=== PATIENT | female | born 1975 | race Asian ===

== ENCOUNTER 2019-01-02 09:21 | Day surgery (SDC) | payer BC ==
[2019-01-02] MEDS: Ringers Lactate 1,000 ML IV ONE ×2 (09:54→11:38)
[2019-01-02] MEDS: CEFAZOLIN/SWI 1gm 2 GM/20 ML SYR ONE ×2 (10:13→11:40)
[2019-01-02] MEDS ORDERED: MIDAZOLAM HCL 2 MG/2 ML INJ ONE ×2 (11:31→11:41)
[2019-01-02] MEDS ORDERED: FENTANYL CITR 100 MCG/2 ML ONE (11:39)
[2019-01-02] MEDS ORDERED: PROPOFOL 200 MG/20 ML VIAL IV ONE (11:39)
[2019-01-02] MEDS ORDERED: ONDANSETRON 4 MG/2 ML VIAL ONE (11:41)
[2019-01-02] MEDS ORDERED: LIDOCAINE 2% MPF 5 ML VIAL ONE (11:41)
[2019-01-02] MEDS ORDERED: PROMETHAZINE 25 MG/ML VIAL IV PRN (12:25)
[2019-01-02] MEDS ORDERED: HYDROCODONE/APAP 5/325 MG TAB PO PRN (12:25)
[2019-01-02] MEDS ORDERED: KETOROLAC 30 MG/ML INJ ONE (12:28)
--- NOTE | 2019-01-02 12:30 | P.BOP ---
Preoperative diagnosis: menorrhagia (AUB-O/P) Postoperative diagnosis: same Primary procedure: hysteroscopy endometrial ablation with HTA Estimated blood loss: min Specimen: none Findings: cavity empty, essure coil noted on left only Anesthesia: General Complications: None Transferred to: Recovery Room Condition: Good
--- NOTE | 2019-01-02 22:56 | OP ---
Date of Procedure: 01/02/2019 Surgeon: Abigail Clark MD Preoperative Diagnosis: Menorrhagia. Postoperative Diagnosis: Menorrhagia. Procedures Performed: Hysteroscopy, endometrial ablation with HTA. Anesthesia: General with LMA. Specimens: No specimens. Complications: No complications. Drains: No drains. Condition: Stable. Indication: The patient is a 43-year-old with heavy menstrual bleeding, evaluated. Endometrial samp ling negative. No adnexal masses. Discussed about all the options. She had a polyp removed, and th e cavity was empty. She had prior Essure coils for permanent sterilization. So, we discussed option s of Mirena IUD versus ablation. The patient wanted to proceed with ablation; and so, she was consen julio and brought to the OR; 2 g of Ancef were given. Description Of Procedure: The patient was taken back to the OR, placed in a supine fashion on the op erating table. After general anesthesia was given, she was placed in a dorsal lithotomy position usi liss kraft. Pelvic examination was performed; and uterus was about 6 to 8 weeks size, antefle xed. No adnexal masses. Prep x3 with Betadine was done. Anterior lip was grasped with 2 Allis clam ps and speculum in the posterior wall. Then, using the HTA sheath that was primed, direct hysterosco py was performed through the cervical canal into the uterine cavity. The cavity was empty. Essure c oil from the left tubal ostium was well visualized. On the right, not visualized at all. However, t he cornual end appeared to be occluded. I did not see the opening. So, placed the tip of the scope at the middle of the cavity, attached the anterior Allis to the HTA sheath to stabilize the sheath an d its position. Posterior vagina was packed with 2 Ray-Tecs. Cavity integrity test was done and pas sed without any leak. Then, ablation was started. The heating cycle, 10-minute ablation cycle, and the cooling cycle of 1-1/2 minutes were conducted without any interruption. The scope was then remov ed after the ablation was done, re-placed, irrigated, and pictures were taken. There was excellent a blation effect globally in the entire endometrium. The scope was then removed. Ray-Tecs were remove d. All the instruments were removed. Instrument, needle, and sponge counts were done and were corre ct at the end of the case. The patient tolerated the procedure well. She will follow up with me in 3 weeks. PAULIE Voice ID: [id number] Report ID: [id number]
== END 2019-01-02 13:55 | disposition home or self-care (01) ==
LOC: OR 09:21
PROVIDERS: ATTEND Obstetrics & Gynecology
PROC: 0U5B8ZZ Destruction of Endometrium, Via Natural or Artificial Opening Endoscopic (ICD-10-PCS; principal; 2019-01-02 10:30)
DX: N92.1 Excessive and frequent menstruation with irregular cycle (principal); N84.0 Polyp of corpus uteri; N95.1 Menopausal and female climacteric states
CPT/HCPCS: 81025; J0690; J2250; J2405; J2704; J3010

== ENCOUNTER 2023-05-31 10:59 | Day surgery (SDC) | payer BC ==
[2023-05-29 10:56] LABS: Absolute Lymphocytes (CBC) 0.7 K/uL (0.7-4.9); Hematocrit 41.5 % (36.0-45.0); Lymphocytes % 22.2 % (15.3-44.8); MCV 92.3 fL (80-100); MPV 7.3 fL (7.6-11.3); Platelets 213 thou/uL (152-406); RBC Red Blood Cell Count 4.49 M/uL (3.86-4.86)
[2023-05-29 11:17] LABS: Specific Gravity < 1.005 (1.005-1.030); Urine Bacteria <20 /HPF (<20); Urine Bilirubin NEGATIVE (Negative); Urine Blood Negative (Negative); Urine Color Colorless (Yellow); Urine Glucose NEGATIVE (Negative); Urine Protein NEGATIVE (Negative); Urine RBC <5 /HPF (None Seen); Urine Urobilinogen Normal (Normal)
[2023-05-29 11:19] LABS: Urine Clarity Clear (Clear)
[2023-05-31] MEDS ORDERED: SCOPOLAMINE HYDROBROMIDE PATCH TD ONE (11:30)
[2023-05-31] MEDS ORDERED: Ringers Lactate 1,000 ML IV ONE (11:30)
[2023-05-31 12:25] VITALS: O2SAT 100
[2023-05-31 12:52] LABS: Urine Specific Gravity/Preg >1.030 (1.005-1.030)
[2023-05-31] MEDS ORDERED: BUPIVACAINE 0.25% PF 30 ML VIAL ONE (13:18)
[2023-05-31] MEDS ORDERED: LIDOCAINE 1% MPF 5 ML VIAL ONE (13:24)
[2023-05-31] MEDS ORDERED: GLYCOPYRROLATE 0.2 MG/ML SYR ONE (13:24)
[2023-05-31] MEDS ORDERED: FENTANYL CITR 100 MCG/2 ML ONE (13:24)
[2023-05-31] MEDS ORDERED: MIDAZOLAM HCL 2 MG/2 ML INJ ONE (13:24)
[2023-05-31] MEDS ORDERED: propofoL 200 MG/20 ML VIAL IV ONE (13:24)
[2023-05-31] MEDS ORDERED: NEOSTIGMINE 1 MG/ML -10 ML VIAL ONE (13:25)
[2023-05-31] MEDS ORDERED: dexAMETHasone 4 MG/ML VIAL ONE (13:25)
[2023-05-31] MEDS ORDERED: ONDANSETRON 4 MG/2 ML VIAL ONE (13:25)
[2023-05-31] MEDS ORDERED: ROCURONIUM 50 MG/5 ML VIAL IV ONE (13:28)
[2023-05-31] MEDS ORDERED: KETOROLAC 30 MG/ML INJ ONE (15:16)
[2023-05-31] MEDS: Ringers Lactate 1,000 ML IV ONE ×2 (15:26→15:43)
[2023-05-31 16:52] VITALS: BP 116/66; TEMP 97.7
[2023-05-31] MEDS ORDERED: HYDROCODONE/APAP 5/325 MG TAB ONE (17:09)
--- NOTE | 2023-06-01 01:30 | OP ---
Date of Procedure: 05/31/2023 Surgeon: Abigail Clark MD Machine Paint Mixer: Ada Foster. Preoperative Diagnoses: Pelvic pain, right complex ovarian cystic mass. Postoperative Diagnoses: Pelvic pain, right complex ovarian cystic mass. Right tubo-ovarian adhesio ns to the lateral wall and the posterior broad ligament. Then Essure coils in both tubes. Right hyd rosalpinx. Procedures Performed: Diagnostic laparoscopy, pelvic washings, left salpingectomy, right salpingo-oo phorectomy, removal of bilateral Essure coils, mini lap for removal of the specimen in the bag withou t rupture. Anesthesia: General endotracheal. Ebl: 25. Urine Output: 200. Ringer's Lactate: 1000. Specimens: Pelvic washings, right tube and ovary and then left tube Essure coils. Findings: Dilated right tube adhered to the right lateral wall, right ovary adhered to the right pos terior broad ligament, right lateral wall and to the mid pelvic ureter. The left tube was mostly unr emarkable. The uterus unremarkable. Another omentum peritoneal surfaces unremarkable and the perito jaun cavity, no evidence of any endometriosis. Condition: Stable. Brief History And Physical: Patient is a 47-year-old with pelvic pain. On transvaginal ultrasound, she had a pelvic mass that was complex. Patient had history of endometrial ablation for bleeding in 2019. Dr. Santoro is her primary care provider that had ordered a CT abdomen and pelvis for pelvic jennifer n and the right complex cystic lesion was a seen and so she was referred. Colonoscopy in the fall of 2021 was negative. Did a CA-125 mostly unremarkable. We discussed the potential for an ovarian tumor, either benign or malignant. On the ultrasound, the cystic mass appeared to be only 3.2 cm, whereas the entire aggrega te of the cystic complex was about 5.4 cm. This was slightly smaller than the CT scan measurement of this complex mass, which was 7.3 cm, so after discussing the benefits and risks of doing the surgery for removal of this mass, bilateral salpingectomy for overall risk reduction of ovarian cancer, the patient was consented to proceed with this. If this was malignant, then she would be referred to an oncologist. She had an ablation that had treated her bleeding optimally, and she is satisfied with t his. Procedure In Detail: After informed consent was verified and was at the bedside, and we re-c onsented her, she was taken back to OR, placed in a supine fashion on the operating table. General a nesthesia was given. She was placed in a dorsal lithotomy position using Efrain stirrups. Abdomen, v ulva, vagina, and perineum prepped and draped in a sterile fashion. Lemus was placed to drain the bl adder. Speculum placed to expose the cervix. Anterior lip grasped with 2 Allis clamps and the diagn ostic uterine manipulator introduced in place and fixed in place. A 1 cm infraumbilical curvilinear incision was made and the fascia was then incised after skin. Fasc ial edges tagged with 0 Vicryl sutures on both sides. Peritoneum entered sharply and Domitila introduc ed and after adequate insufflation, site of entry was checked and was unremarkable. Three 5 ports we re placed, 1 in each right and left lower quadrants and then 1 in the suprapubic area under direct vi joshua without any problems. Local Marcaine was used the beginning and end of the case with the skin a nd fascia. The patient was placed in Trendelenburg position and all the upper abdominal peritoneal surface and l ower abdominal peritoneal surfaces were carefully examined and were mostly unremarkable without any c ystic lesions or masses or endometriosis. The right tube was dilated, and the right tube adhered to the ovary and the ovary adhered to the right lateral wall as well as the posterior pelvic sidewall, c arefully this was inspected in relation to the ureter, which was right underneath the adhesions. On the left side, the ovary was completely unremarkable as well as the tube. Pelvic washings were performed and retrieved for pathology. The tubal adhesions were taken down systematically. Then, the left mesosalpinx was dissected above t he level of the round ligament towards the IP and parallel to the IP. Once this entire area was diss ected, the mass was pushed medially. The next incision was made in the broad ligament medial to the ovary, parallel to the IP ligament. Then this was opened further down and all the adhesions of the o vary to the peritoneal surfaces were taken down sharply with scissors. Once these were done, the per itoneum rolled back down further. The incision was made in the peritoneum here to extend and isolate d the IP. Once this was done, the peritoneum incised immediately on the undersurface of the posterio r broad ligament close to the utero-ovarian ligament and then dissection taken down further. Once th e ovary was released from its the adhesions, then it was isolated on the IP pedicle. After the urete r was dissected and and the IP was isolated on the ovarian pedicle. After taking the tube down from the medial aspect of the lateral and taking the utero-ovarian ligament down. The IP was ta [place] down with the help of the LigaSure, and there was excellent hemostasis. The remnant of the coil from the right cornual end was pulled, it was all removed, and these were all handed out for permanen t pathology. The mesosalpinx was started to be taken down from the fimbriated end to the cornual end. Then, the c oronal end was taken down with the help of the bipolar LigaSure. The rest of the coils were pulled t hrough the uterus, and this was handed out and all these were sent for permanent pathology. The tube was handed out as well. The right tube and ovary were placed to the specimen in the anterior cul-de-sac. Thorough irrigation suction was performed. Hemostasis was secured in many places on the right lateral posterior wall. Then after fully irrigating, Interceed was placed over the cornual ends of both sides and the dissect ion plane of the right lateral wall. Once all this was done, the specimen was put in a bag through t he umbilical trocar. Later this was retrieved through the suprapubic trocar and all the other trocar sites were removed and were hemostatic. The fascia at the umbilicus was closed with the 0 Vicryl ta g sutures, tied to each other and the other 2 incisions, 5-0 Monocryl was used to close the skin, sim ilar suture for the umbilical skin incision closure as well was used. The suprapubic site was extended to 3.5 cm, then carefully dissected the underlying connective tissue and fascia to open up and widen the incision. Once this was done, all the layers were widened up an d the specimen pulled out intact. Fascia was closed with the help of continuous running 0 Vicryl, mckinley bcutaneous tissues with continuous running 3-0 chromic and continuous running 5-0 Monocryl for the sk in. Lemus and VCare were removed. Instrument, needle, and sponge counts were correct at the end of the case. The patient tolerated the procedure well. She will follow up in 1 week. PAULIE Voice ID: [id number] Report ID: [id number]
== END 2023-05-31 17:55 | disposition home or self-care (01) ==
LOC: OR 10:59
PROVIDERS: ATTEND Obstetrics & Gynecology
PROC: 0UT04ZZ Resection of Right Ovary, Percutaneous Endoscopic Approach (ICD-10-PCS; 2023-05-31)
PROC: 0UT74ZZ Resection of Bilateral Fallopian Tubes, Percutaneous Endoscopic Approach (ICD-10-PCS; principal; 2023-05-31 14:45)
DX: R10.2 Pelvic and perineal pain (principal); D27.0 Benign neoplasm of right ovary; N70.11 Chronic salpingitis; K66.0 Peritoneal adhesions (postprocedural) (postinfection)
CPT/HCPCS: 58661; 85025; 81001; 36415; 86900; 88108; 86850; 81025; 86901; 88300; 88305 ×2; J2704; J1100; J2710; J2001; J2250; J3010; J2405; J7120 ×2